=== PATIENT | male | born 1995 | race Caucasian/White ===

== ENCOUNTER 2017-09-07 00:58 | Emergency (ER) | payer BC ==
[2017-09-07 01:04] VITALS: RESP 16; TEMP 97.5
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
[2017-09-07] MEDS ORDERED: LIDOCAINE 2% JELLY 20 ML (UROJECT) ONE (02:15)
[2017-09-07] MEDS ORDERED: LIDOCAINE 2% JELLY 5 ML TUBE ONE (02:16)
[2017-09-07] MEDS ORDERED: LIDOCAINE 2% JELLY 5 ML TUBE TP ONE (02:17)
[2017-09-07 02:30] VITALS: BP 139/77; PULSE 78; O2SAT 96
== END 2017-09-07 02:26 | disposition home or self-care (01) ==
PROC: 3E0T3BZ Introduction of Anesthetic Agent into Peripheral Nerves and Plexi, Percutaneous Approach (ICD-10-PCS; principal; 2017-09-07)
DX: T23.202A Burn of second degree of left hand, unspecified site, initial encounter (principal); T31.0 Burns involving less than 10% of body surface; X15.3XXA Contact with hot saucepan or skillet, initial encounter; Y93.G3 Activity, cooking and baking

== ENCOUNTER 2018-08-18 22:14 | Emergency (ER) | payer BC ==
[2018-08-18] MEDS ORDERED: IPRATROPIUM/ALBUTEROL 3 ML DEYVIAL IH ONE (22:44)
[2018-08-18] MEDS ORDERED: DEXAMETHASONE 10 MG/ML VIAL PO ONE (22:44)
--- NOTE | 2018-08-18 22:50 | EDPHY ---
H & P Stated Complaint: trouble breathing, wheezing, upper back pain worsening past 2 weeks Time Seen by Provider: 08/18/18 22:36 HPI/ROS: CHIEF COMPLAINT: Wheezing, cough x5 days HISTORY OF PRESENT ILLNESS: 22-year-old male, daily marijuana smoker, works in a marijuana dispensary, prior history of asthma, complaining of 5 days of URI symptoms, sore throat, dyspnea, wheezing, nonproductive cough. He used a colleagues albuterol inhaler and felt significant relief. No influenza vaccination. No chest pain. No abdominal pain. No fever or chills. No otalgia. PRIMARY CARE PROVIDER: None REVIEW OF SYSTEMS: 10 systems reviewed and negative with the exception of the elements mentioned in the history of present illness PAST MEDICAL & SURGICAL HISTORY: history of asthma as a child. SOCIAL HISTORY: Daily marijuana smoking. Works in a marijuana dispensary. PHYSICAL EXAM (Prior to examination, patient consented to physical exam, hands were washed and my usual and customary physical exam procedures followed) 1) GENERAL: Well-developed, well-nourished, alert and oriented. Appears to be in no acute distress. Speaking full sentences with no signs of respiratory distress 2) HEAD: Normocephalic, atraumatic 3) HEENT: Pupils equal, round, reactive to light bilaterally. Sclera anicteric. Nasopharynx, oropharynx, clear, no lesions. Moist mucous membranes. No tonsillar enlargement or exudate. Uvula midline. No pointing. No trismus no drooling. Ears bilaterally with normal tympanic membranes. 4) NECK: Right neck crepitus noted. Full range of motion, no meningeal signs. 5) LUNGS: Bilateral end-expiratory wheeze. Right lower lobe rales. 6) HEART: Regular rate and rhythm, no murmur, no heave, no gallop. 7) ABDOMEN: No guarding, no rebound, no focal tenderness, negative McBurney's, negative Mcwilliams's, negative Rovsing's, negative peritoneal sign, 8) MUSCULOSKELETAL: Moving all extremities, no focal areas of tenderness, no obvious trauma. No peripheral edema or discoloration. 9) BACK: No CVA tenderness, no midline vertebral tenderness, no fluctuance, no step-off, no obvious trauma, no visual or palpable abnormality. 10) SKIN: No rash, no petechiae. 11) Psychiatric: Patient is oriented X 3, there is no agitation. DIFFERENTIAL DIAGNOSIS: In no particular order including but not limited to pneumothorax, bronchitis, pneumonia, reactive airways disease - Personal History Current Tetanus/Diphtheria Vaccine: Unsure Current Tetanus Diphtheria and Acellular Pertussis (TDAP): Unsure - Medical/Surgical History Hx Asthma: Yes Hx Chronic Respiratory Disease: No Hx Diabetes: No Hx Cardiac Disease: No Hx Renal Disease: No Hx Cirrhosis: No Hx Alcoholism: No Hx HIV/AIDS: No Hx Splenectomy or Spleen Trauma: No Other PMH: asthma as a child, - Social History Smoking Status: Never smoked Constitutional: Initial Vital Signs Temperature (C) 37.6 C 08/18/18 22:28 Heart Rate 104 H 08/18/18 22:28 Respiratory Rate 20 08/18/18 22:28 Blood Pressure 156/85 H 08/18/18 22:28 O2 Sat (%) 94 08/18/18 22:28 O2 Delivery Mode Room Air Allergies/Adverse Reactions: banana Allergy (Verified 09/07/17 01:01) cat dander Allergy (Verified 08/18/18 22:34) dog dander Allergy (Verified 08/18/18 22:34) pollen extracts Allergy (Verified 08/18/18 22:34) Home Medications: Medication Instructions Recorded Marijuana 09/07/17 Albuterol [Proventil Inhaler HFA 1 - 2 puffs IH Q4PRN PRN #1 mdi 08/18/18 (*)] Azithromycin [Zithromax] 500 mg PO DAILY #1 tablet 08/18/18 Medical Decision Making - Diagnostics Imaging Results: Imaging Impressions Chest X-Ray 08/18/18 22:36 Impression: Query pneumomediastinum and subsequent subcutaneous air. If clinically indicated, noncontrast CT scan of the chest can be performed. Findings and recommendations discussed with Byron Ponce PA-C, at 11:00 p.m., on August 18, 2018. Final report concurs with initial preliminary interpretation. Chest CT 08/18/18 23:08 Impression: 1. Pneumomediastinum dissecting into the neck, and throughout the entire course of the esophagus. 2. No pneumothorax. 3. Bronchial thickening in the right middle lobe and lingula, and to some extent upper lobe, consistent with history of asthma. 4. No pneumonia or parenchymal consolidation. Findings and recommendations discussed with Kristin Ponce at 11:32 PM hour , 08/18/2018. Final report concurs with initial preliminary interpretation. ED Course/Re-evaluation: 10:49 pm: Will administer DuoNeb treatment, Decadron orally, obtain x-ray. Care of patient under supervision of secondary supervising physician Dr Worthington with whom I discussed case. 11:06 p.m.: Patient noted to have possible pneumomediastinum and subcutaneous air in the neck on chest x-ray interpreted by Dr. Cristy Saleh who recommended noncontrast CT. In further discussion with the patient he notes numerous coughing fits earlier today. 11:46 p.m.: Patient is saturating well, feels improvement after DuoNeb treatment. Phone consultation with Dr. Luis Manuel Kohler regarding the patient's pneumomediastinum. Dr. Kohler recommended no further intervention. Discussed this with the patient he is comfortable with this plan. Will discharge with albuterol meter dose inhaler, azithromycin. Usual and customary respiratory precautions instructions provided. Do not ascend to higher altitude. - Data Points Medications Given: Discontinued Medications Albuterol/Ipratropium (Duoneb) 3 ml IH EDNOW ONE Stop: 08/18/18 22:45 Last Admin: 08/18/18 23:02 Dose: 3 ml Dexamethasone (Decadron Injection) 10 mg PO EDNOW ONE Stop: 08/18/18 22:45 Last Admin: 08/18/18 23:00 Dose: 10 mg Departure - Departure Disposition: Home, Routine, Self-Care Clinical Impression: Pneumomediastinum Condition: Good Instructions: Upper Respiratory Infection (ED) Additional Instructions: Return to the emergency department immediately for change in breathing habits, change in voice, change in swallowing habits, change in mental status, or any other symptoms that concern you. Do not ascend to higher altitude. Referrals: Luis Manuel Kohler MD [Medical Doctor] - 1-2 days without fail Prescriptions: Albuterol [Proventil Inhaler HFA (*)] 1 - 2 puffs IH Q4PRN PRN #1 mdi PRN Reason: Cough, Moderate Azithromycin [Zithromax] 500 mg PO DAILY #1 tablet
[2018-08-18] MEDS ORDERED: DEXAMETHASONE 4 MG/ML VIAL ONE (22:58)
[2018-08-19 00:07] VITALS: BP 119/75
== END 2018-08-19 00:06 | disposition home or self-care (01) ==
DX: J98.2 Interstitial emphysema (principal); Z87.09 Personal history of other diseases of the respiratory system
CPT/HCPCS: J1100

== ENCOUNTER 2019-01-06 15:30 | Emergency (ER) | payer BC ==
--- NOTE | 2019-01-06 15:40 | EDPHY ---
H & P Stated Complaint: L ankle/foot pain x 2-3 days -started while moving boxes Time Seen by Provider: 01/06/19 15:40 HPI/ROS: HPI: This is a 23-year-old male who presents with Chief Complaint: Left lateral ankle pain Location: Left lateral ankle Quality: Pain Duration: Several days Signs and Symptoms: No bleeding, no radiation, no numbness, no weakness, no tingling, no incontinence, no decreased range of motion, no swelling, + pain, no fever Timing: Acute, worse with weight-bearing and climbing stairs Severity: Mild Context: Patient is a student at [employer], has been moving out of his apartment the last several days and has noted left lateral ankle pain. He does not remember rolling his ankle or actual injury. Who reports that the area hurts to touch and after walking for a long period of time the left lateral ankle starts to hurt. The pain is nonradiating in nature , transient. Rest makes the pain better. Modifying Factors: [id number] medications tried Comment: ROS: A comprehensive 10 system review of systems is otherwise negative aside from elements mentioned in the history of present illness. MEDICAL/SURGICAL/SOCIAL HISTORY: Medical history: Generally healthy. Does not take any regular medications. Surgical history: Denies Social history: Student at [employer]. Originally from [place]. Current every day tobacco user. CONSTITUTIONAL: Well-developed, well-nourished, young adult white male, awake and alert, no obvious distress HEENT: Atraumatic and normocephalic, PERRL, EOMI. Nares patent; no rhinorrhea; no nasal mucosal edema. Tympanic membranes clear. Oropharynx clear, no exudate and moist pink mucosa. Airway patent. No lymphadenopathy. No meningismus. Cardiovascular: Normal S1/S2, regular rate, regular rhythm, without murmur rub or gallop. PULMONARY/CHEST: Symmetrical and nontender. Clear to auscultation bilaterally. Good air movement. No accessory muscle usage. ABDOMEN: Soft, nondistended, nontender, no rebound, no guarding, no peritoneal signs, no masses or organomegaly. No CVAT. EXTREMITIES: 2/2 pulses, strength 5/5, left Ankle: Plantar flexion to 50, dorsiflexion to 20. Foot inversion to 35 degree. Mild tenderness/swelling Anterior talofibular ligament. No tenderness/swelling Calcaneofibular ligament , no tenderness/swelling posterior talofibular ligament, no tenderness/swelling posterior inferior tibiofibular ligament. Achilles tendon intact. no deformities , no clubbing, no cyanosis or edema. NEUROLOGICAL: no focal neuro deficits. GCS 15. SKIN: Warm and dry, no erythema. no rash. Good capillary refill. Source: Patient Exam Limitations: No limitations - Medical/Surgical History Hx Asthma: Yes Hx Chronic Respiratory Disease: No Hx Diabetes: No Hx Cardiac Disease: No Hx Renal Disease: No Hx Cirrhosis: No Hx Alcoholism: No Hx HIV/AIDS: No Hx Splenectomy or Spleen Trauma: No Other PMH: asthma as a child, - Social History Smoking Status: Current some day smoker Constitutional: Initial Vital Signs Temperature (C) 36.5 C 01/06/19 15:34 Heart Rate 75 01/06/19 15:34 Respiratory Rate 16 01/06/19 15:34 Blood Pressure 119/82 H 01/06/19 15:34 O2 Sat (%) 97 01/06/19 15:34 O2 Delivery Mode Room Air Allergies/Adverse Reactions: banana Allergy (Verified 09/07/17 01:01) cat dander Allergy (Verified 08/18/18 22:34) dog dander Allergy (Verified 08/18/18 22:34) pollen extracts Allergy (Verified 08/18/18 22:34) Home Medications: Medication Instructions Recorded NK [No Known Home Meds] 01/06/19 Medical Decision Making - Diagnostics Imaging Results: Imaging Impressions Ankle X-Ray 01/06/19 15:41 Impression: Negative. No fracture. Foot X-Ray 01/06/19 15:41 Impression: Negative. No acute fracture. Procedures: Procedure: Splint placement. A left ankle stirrup splint was applied. After application of the splint I returned and re-examined the patient. The splint was adequately immobilizing the joint and distal to the splint the patient's circulation and sensation was intact. ED Course/Re-evaluation: Vital signs reviewed and stable upon arrival. Left ankle and foot x-rays ordered my read and show no fracture, dislocation Suspect mild sprain/strain Ankle stirrup splint placed with orthopedic follow-up as needed Patient politely declined crutches. No signs of neurovascular compromise/tenting of skin/compartment syndrome/ extremities and joints examined above and below area of concern and are neurovascularly intact. This patient was seen under the supervision of my secondary supervising physician. I evaluated care for this patient with attending. Differential Diagnosis: Ankle injury differential diagnosis includes but is not limited to tibia fracture, fibula fracture, metatarsal fracture, LisFranc fracture, achilles tendon rupture, sprain. Departure - Departure Disposition: Home, Routine, Self-Care Clinical Impression: Left ankle sprain Qualifiers: Encounter type: initial encounter Involved ligament of ankle: unspecified ligament Qualified Code(s): S93.402A - Sprain of unspecified ligament of left ankle, initial encounter Condition: Good Instructions: Ankle Sprain (ED), Ankle Stirrup Splint (ED) Additional Instructions: Wear the ankle splint while out of bed until pain free or seen by Orthopedics. Take Tylenol 650 mg every 4 hours and/or Ibuprofen 600 mg every 8 hours with food as needed for pain. Apply ice for 30 minutes at a time; 2-3 times per day for the next 1-2 days. Follow up with Orthopedics in 7-10 days if symptoms persist at which time they will evaluate and recommend with you if conservative management versus MRI is indicated. Referrals: Gumaro Cain MD [Medical Doctor] - As per Instructions
[2019-01-06 15:48] VITALS: BP 119/82
== END 2019-01-06 16:24 | disposition home or self-care (01) ==
DX: S93.402A Sprain of unspecified ligament of left ankle, initial encounter (principal); X50.0XXA Overexertion from strenuous movement or load, initial encounter; Y93.89 Activity, other specified
CPT/HCPCS: L4350